=== PATIENT | male | born 1990 | race Two or more races ===

== ENCOUNTER 2022-05-23 02:34 | Emergency (ER) | payer OTHER ==
[~2022-05-23] VITALS: Ht 172.7 cm; Wt 77.1 kg
[2022-05-23 02:37] VITALS: BP 138/78
--- NOTE | 2022-05-23 03:11 | NUR ---
Patient discharged to [facility] in stable condition. Written and verbal after care instructions given.
== END 2022-05-23 04:20 ==
LOC: ER 02:40
DX: F11.10 Opioid abuse, uncomplicated (principal)

== ENCOUNTER 2024-03-15 12:00 | Emergency (ER) | payer MEDICAID, OTHER ==
[~2024-03-15] VITALS: Ht 188 cm; Wt 127.0 kg
[2024-03-15] MEDS ORDERED: NALO4SPR BNOSTRILS (13:49)
[2024-03-15 15:00] VITALS: BP 115/68; TEMP 97.9; O2SAT 98
== END 2024-03-15 15:34 | disposition home or self-care (01) ==
LOC: ER 12:05
DX: T40.2X1A Poisoning by other opioids, accidental (unintentional), initial encounter (principal); T40.411A Poisoning by fentanyl or fentanyl analogs, accidental (unintentional), initial encounter; Y92.89 Other specified places as the place of occurrence of the external cause
CPT/HCPCS: 98960